=== PATIENT | female | born 1980 | race African-American/Black ===

== ENCOUNTER 2022-03-28 01:55 | Day surgery (SDC) | payer OTHER, SELFPAY ==
[2022-03-27 08:19] VITALS: BMI 34.4
--- NOTE | 2022-03-27 08:26 | PC.NURSE ---
Report to the Outpatient Waiting Room, entrance under the green pavilion located off [facility], at time 0945 on date 03/28/22. OR Time: 1145. - You and your visitor will be asked a series of questions to screen for COVID 19 for your protection. - Only one visitor is allowed at this time. - The patient visitor is requested to leave or wait in car when not with patient. - A mask is required within the hospital. Patients may have clear liquids (water, carbonated beverages, clear teas, apple juice) until 3 hours prior to surgery with a maximum of 20 ounces. - No food from midnight until time of surgery Take the following medications with a SIP of water the morning of surgery: NONE Medications to discontinue per physician: VITAMINS/SUPPLEMENTS Date to take last dose: NO MORE UNTIL AFTER SURGERY Please no make-up, nail monegasque, hairspray, perfume, deodorant, or body powder the day of surgery. No jewelry (including any body piercings) or valuables the day of surgery, leave them at home. Please take a shower or bath the night before, or the morning of, surgery with an antibacterial soap. Wear comfortable, loose fitting clothing. - Jewelry must be removed prior to entering the operating room. Rings and piercings that are not removed may be cut off. - The hospital will not accept responsibility for valuables. - Please leave all valuables, including medications, at home the day of surgery. If you are going home after surgery, a licensed racecar driver must drive you home. - NO public transportation without another adult. - We recommend that an adult stay with you for 24 hours following discharge. - We also recommend that you do not drive, make important decision, drink alcoholic beverages, or take any drugs that were not prescribed by your health care provider for at least 24 hours after your discharge time. Follow any additional instructions given to you from your surgeon. If you or anyone in your household have experienced Covid symptoms in the past week, please notify your surgeon or the nurse liaison at the phone number below for possible testing. Telephone instructions given to PT Asad AUGUSTINE and asked if any additional questions and then verbalized understanding. Patient advised to call surgeon office or pre surgery nurse liaison [phone] if any additional questions.
--- NOTE | 2022-03-27 12:27 | PM.IMHP ---
H&P: HPI History of Present Illness Date/Time: 03/27/22 12:27 Chief Complaint: Heavy vaginal bleeding Narrative: This is a 41-year-old multiparous patient admitted for hysteroscopy dilatation curettage secondary to heavy bleeding. She was seen in the ER below was placed on progesterone which did not she was noted to have a hemoglobin below 10. I began her on TXA and she continues to bleed. Risks and benefits of the procedure were reviewed in full. She has multiple fibroids and probably is a candidate for hysterectomy but she has discussed the possibility of a further as she has a new partner. At this point the important thing is to stop the bleeding PMFSH Social History Social History Years smoked: 20 Smoking status: Current every day smoker Tobacco type: cigarettes Alcohol intake: current Alcohol use details: SOCIAL Substance use: never Substance use type: does not use Living arrangements: with family Spiritual care concerns: No Meds Home Medications and Allergies Home Medications Medication Instructions Recorded Confirmed Type ferrous sulfate 325 mg (65 mg 325 mg PO DAILY 03/27/22 03/27/22 History iron) tablet (FeroSul) tranexamic acid 650 mg tablet 650 mg PO TID 03/27/22 03/27/22 History (Lysteda) Allergies Allergy/AdvReac Type Severity Reaction Status Date / Time amoxicillin Allergy Unknown Rash Verified 03/27/22 08:18 Exam Chest: Chest palpation & inspection: normal inspection of the chest Resp: Effort & Inspection: normal respiratory effort Cardio: Rhythm: regular rhythm Heart sounds: S1 normal heart sound present and S2 normal heart sound present GI: Inspection: normal to inspection GI Palp: Yes Soft to palpation Auscultation: normal bowel sounds : Speculum Exam - Vagina: normal appearance of the vagina Speculum Exam - Cervix: normal appearance of the cervix and Other cervical findings present (Moderate to heavy amount bleeding is seen) Bimanual exam- vagina & uterus: enlarged Bimanual Exam- Adnexa, other: normal adnexae Assessment and Plan Assessment and plan (1) Vaginal bleeding: Code(s): N93.9 - Abnormal uterine and vaginal bleeding, unspecified Status: Acute (2) Anemia: Code(s): D64.9 - Anemia, unspecified Status: Acute (3) Uterine fibroid: Code(s): D25.9 - Leiomyoma of uterus, unspecified Status: Acute Plan Hysteroscopy/dilatation and curettage
--- NOTE | 2022-03-28 06:45 | WPDHPUPDATE1 ---
History and Physical Update Update Date/Time: 03/28/22 06:45 History and Physical has been reviewed, including an updated exam of the patient. There are NO changes in the patient's condition. Risks, benefits, and alternatives have been discussed and questions answered. Patient agrees to proceed with procedure.
--- NOTE | 2022-03-28 10:16 | P.PNAN_ITS ---
Anes - Initial Pre Proc Eval Procedure: Operation Date: 03/28/22 11:45 Proposed Procedures p Hysteroscopy Dilation and Curettage - Preston Everett MD Date/Time: 03/28/22 10:16 Surgeon: Preston Everett MD Pre Op Diagnosis: irregular bleeding Patient Data Age: 41 Gender: F Height: 1.68 m Weight: 96.62 kg Allergies Allergy/AdvReac Type Severity Reaction Status Date / Time amoxicillin Allergy Unknown Rash Verified 03/27/22 08:18 Home Medications Medication Instructions Recorded Confirmed Type ferrous sulfate 325 mg (65 mg 325 mg PO DAILY 03/27/22 03/27/22 History iron) tablet (FeroSul) tranexamic acid 650 mg tablet 650 mg PO TID 03/27/22 03/27/22 History (Lysteda) hydrocodone 5 mg-acetaminophen 325 1 tablet PO Q4H PRN pain #30 tabs 03/28/22 Rx mg tablet Patient hx anesthesia problems: none Family hx anesthesia problems: none Results Review: All pre-operative results and documents have been reviewed as part of the pre- operative evaluation. [facility] Past Medical History Medical History (Updated 03/28/22 @ 10:16 by Preston Paris MD) Obesity Surgical History Surgical History (Updated 03/28/22 @ 10:16 by Preston Paris MD) History of section History of cholecystectomy Hx of breast reduction, elective Social History Social History Years smoked: 20 Smoking status: Current every day smoker Tobacco type: cigarettes Alcohol intake: current Alcohol use details: SOCIAL Substance use: never Substance use type: does not use Living arrangements: with family Spiritual care concerns: No Anes - Eval Final PreProcedure Day of Procedure 03/28/22 10:16 Patient weight: obese Heart: regular rate and rhythm Lungs: clear to auscultation Airway: Mallampati scale class II Neurological: alert and oriented Last oral intake: >/= 8 hours ASA classification: III Emergent: no Anesthetic plan: proceed Anesthesia type and monitoring: general GIVS and standard monitoring Results Review: All pre-operative results and documents have been reviewed as part of the pre- operative evaluation. Informed Consent: The patient's anesthetic plan and its attendant risks and benefits were discussed with the patient/family/POA. Questions were solicited and answers provided to the satisfaction of the patient/family/POA.
[2022-03-28] MEDS: ACETAMINOPHEN 500 MG TABLET 1000 MG PO (10:17)
[2022-03-28] MEDS: LACTATED RINGERS 1,000 ML 30 ML IV CONT (10:27)
[2022-03-28 10:30] VITALS: BP 151/94; PULSE 94; RESP 16; TEMP 36.8; O2SAT 100
[2022-03-28 10:34] LABS: Hematocrit 28.1 % (37.0-47.0); Hemoglobin 8.5 g/dL (12.0-15.0)
[2022-03-28] MEDS: TRANEXAMIC ACID 1,000MG/ISO100 1,000 MG/100 ML BAG 200 MG IVPB (10:34)
[2022-03-28 11:02] VITALS: BP 115/82; PULSE 85; RESP 16; O2SAT 100
--- NOTE | 2022-03-28 11:02 | W.PM.PROC2 ---
Procedure Note - Detailed Date of Procedure 03/28/22 Pre-op Diagnosis irregular bleeding Post-op Diagnosis Same Procedure Performed Hysteroscopy/dilatation and curettage Surgeon Preston Everett MD Anesthesia MAC and Local Indications This is 41-year-old female with heavy bleeding resulting in anemia. She has known fibroids Findings Uterus sounded to 12cm. Thick clotted tissue throughout making it impossible to visualize the endometrium completely Description of Procedure Patient was prepped draped in normal sterile fashion placed in the dorsal lithotomy position. Previously she had been given T x A. Weighted speculum placed in posterior fornix vagina. Anterior fornix of the cervix grasped with a single-tooth tenaculum. 2.5cc 1% xylocaine anesthesia placed at 2, 4, 8, 10:00 a.m. of the cervix. Uterus sounded to 12cm. Clots and debris were noted in the vagina and these were cleared the uterus was then scraped over the entire 360? after attempts with the hysteroscope showed just thickened endometrium with exquisite amount of clots present. Uterus was scraped over the entire 360? until a good grating sound was heard. Blood loss was estimated at25cc. All sponge, needle, instrument counts were correct. There were no immediate complications Estimated Blood Loss 25 Drains No Packing No Pathology Yes Complications No immediate complications Condition Stable Disposition PACU
[2022-03-28 11:30] VITALS: BP 128/84; PULSE 72; RESP 16; O2SAT 100
[2022-03-28] MEDS: ONDANSETRON INJ 4 MG/2 ML VIAL IV PUSH (11:42)
[2022-03-28] MEDS: oxyCODONE HCL (*CRX) 5 MG TAB IR PO (11:53)
[2022-03-28 12:00] VITALS: BP 125/75; PULSE 64; RESP 16
[2022-03-28 12:25] VITALS: BP 143/88; PULSE 61; RESP 16
== END 2022-03-28 12:30 | disposition home or self-care (01) ==
PROVIDERS: PCP Family Medicine; Visit Provider Obstetrics & Gynecology
PROC: 0U5B8ZZ Destruction of Endometrium, Via Natural or Artificial Opening Endoscopic (ICD-10-PCS; CPT 58563; principal; 2022-03-28 11:45)
DX: N92.6 Irregular menstruation, unspecified (principal); N93.9 Abnormal uterine and vaginal bleeding, unspecified; D25.9 Leiomyoma of uterus, unspecified; D64.9 Anemia, unspecified; F17.210 Nicotine dependence, cigarettes, uncomplicated; E66.9 Obesity, unspecified; Z68.33 Body mass index [BMI] 33.0-33.9, adult
CPT/HCPCS: 58558; 36415; 85014; 85018; 88305; A9270; J2250; J2405; J2704; J3010; J7120